=== PATIENT | female | born 1990 | race Caucasian/White ===

== ENCOUNTER 2017-02-04 19:45 | Emergency (ER) | payer SELFPAY ==
[~2017-02-04] VITALS: Ht 149.9 cm; Wt 104.3 kg
[2017-02-04 20:04] VITALS: BP 125/62
--- NOTE | 2017-02-04 20:29 | NUR ---
PT AMB WITH ASST TO ER BED 5
--- NOTE | 2017-02-04 20:40 | NUR ---
CAME IN WITH C/O ETOH, SHE TOOK SOME TINS OF BEER.PATIENT ALERT , AWAKE ORIENTED , AMBULATORY.
--- NOTE | 2017-02-04 21:03 | NUR ---
Pupils equal and reactive to light bilaterally. No facial droop noted. No smile deficit noted. Speech normal for patient. Patient is alert and oriented to person, place, time and event. Bilateral hand practical nursing faculty equal. Bilateral foot push equal.
--- NOTE | 2017-02-04 21:42 | NUR ---
[facility] CALLED. ETA 20MIN Patient appears to be resting comfortably in bed. Vital Signs within normal limits. Respirations even and unlabored.
[2017-02-04 21:44] VITALS: BP 115/73
== END 2017-02-04 21:44 | disposition home or self-care (01) ==
LOC: MED 19:45
DX: F10.129 Alcohol abuse with intoxication, unspecified (principal); F17.200 Nicotine dependence, unspecified, uncomplicated; Z88.0 Allergy status to penicillin